=== PATIENT | female | born 1960 | race Caucasian/White ===

== ENCOUNTER 2017-08-14 21:05 | Emergency (ER) | payer OTHER ==
[~2017-08-14] VITALS: Ht 157.5 cm; Wt 83.0 kg
[2017-08-14 21:18] VITALS: BP 145/82
--- NOTE | 2017-08-14 22:15 | NUR ---
57 Y/O F W/C/O R KNEE PAIN S/P FALLING TONIGH AT 1900. PT DENIES HITTING HEAD. MED HX HTN.
--- NOTE | 2017-08-14 22:30 | NUR ---
TOY RAZO AT BEDSIDE EVALUATING PT.
[2017-08-14] MEDS ORDERED: KETOROLAC 30 MG/ML VIAL IM ONE (22:35)
[2017-08-14] MEDS ORDERED: HYDROcodone/APAP 5/325 MG 1 TAB TAB PO ONE (22:35)
[2017-08-14 23:00] VITALS: BP 140/87
--- NOTE | 2017-08-14 23:00 | NUR ---
Patient discharged with v/s stable. Written and verbal after care instructions given and explained. Patient alert, oriented and verbalized understanding of instructions. Ambulatory ON CRUTCHES with steady gait. All questions addressed prior to discharge. ID band removed. Patient advised to follow up with PMD OR RETRUN BACK TO ER IF CONDITION WORSENS. Rx of NORCO, AND NAPROSYN given. Patient educated on indication of medication including possible reaction and side effects. Opportunity to ask questions provided and answered.
== END 2017-08-14 23:00 | disposition home or self-care (01) ==
LOC: MED 21:05
DX: S83.91XA Sprain of unspecified site of right knee, initial encounter (principal); I10 Essential (primary) hypertension; W01.0XXA Fall on same level from slipping, tripping and stumbling without subsequent striking against object, initial encounter; Y93.89 Activity, other specified; Y92.89 Other specified places as the place of occurrence of the external cause; Y99.8 Other external cause status
CPT/HCPCS: 29505; 73562; 96372; 99284; J1885

== ENCOUNTER 2017-08-30 20:42 | Emergency (ER) | payer OTHER ==
[~2017-08-30] VITALS: Ht 157.5 cm; Wt 86.2 kg
[2017-08-30 20:59] VITALS: BP 142/74
--- NOTE | 2017-08-30 21:05 | NUR ---
TO LOBBY AMB, V/S STABLE A/W FOR BED, ERMKeven NOTED
--- NOTE | 2017-08-30 23:15 | NUR ---
PT. AMBULATED TO ER BED 11
--- NOTE | 2017-08-30 23:30 | NUR ---
57Y/F PT.PRESENTS TO ED WITH C/O R. KNEE PAIN. PT. FELL ON 08/14/17, WAS SEEN BY ER MD AND F/U WITH PMD. TODAY PAIN GET WORSE AND RT. LEG BRUISES. HX. HTN. PT DENIES N/V/D; SKIN IS INTACT, PINK/WARM/DRY, RT. KNEE BRUISE ON KNEE IMMOBILIZER; AAOX4, PERRL, WITH UNSTEADY GAIT; LUNGS CLEAR BL, BREATHING UNLABORED; HR EVEN AND REGULAR, BL PERIPHERAL PULSES PRESENT; BS ACTIVE X4, NO TENDERNESS TO PALPATION, NO HEPATOSPLENOMEGALLY PALPATED, RESONANT TO PERCUSSION; PT DENIES ANY FEVER, CP, SOB, OR COUGH AT THIS TIME; PT STATES 5/10 PAIN AT THIS TIME; VSS; PATIENT POSITIONED FOR COMFORT; HOB ELEVATED; BEDRAILS UP X2; BED DOWN.
--- NOTE | 2017-08-31 00:42 | NUR ---
Patient being evaluated by at bedside.
--- NOTE | 2017-08-31 00:55 | NUR ---
Patient discharged with v/s stable. Written and verbal after care instructions given and explained. Patient alert, oriented and verbalized understanding of instructions. Ambulatory with steady gait. All questions addressed prior to discharge. ID band removed. Patient advised to follow up with PMD. Rx of NORCO 5/325MG/KEFLEX 500 MG given. Patient educated on indication of medication including possible reaction and side effects. Opportunity to ask questions provided and answered.
[2017-08-31 00:57] VITALS: BP 132/84
== END 2017-08-31 00:55 | disposition home or self-care (01) ==
LOC: MED 20:42
DX: L03.115 Cellulitis of right lower limb (principal); I10 Essential (primary) hypertension
CPT/HCPCS: 73562; 99284

== ENCOUNTER 2020-11-19 16:12 | Emergency (ER) | payer MEDICAID, OTHER ==
[~2020-11-19] VITALS: Ht 165.1 cm; Wt 87.1 kg
[2020-11-19 16:40] VITALS: BP 175/101
[2020-11-19] MEDS ORDERED: predniSONE 20 MG TAB PO ONE (17:05)
[2020-11-19] MEDS ORDERED: PRED10TA5 PO (17:20)
[2020-11-19] MEDS ORDERED: DIPH25TA53 PO (17:21)
[2020-11-19 17:31] VITALS: BP 162/99
== END 2020-11-19 17:30 | disposition home or self-care (01) ==
LOC: MED 16:12
DX: L23.9 Allergic contact dermatitis, unspecified cause (principal); I10 Essential (primary) hypertension
CPT/HCPCS: 99283; J7512

== ENCOUNTER 2020-12-11 15:32 | Emergency (ER) | payer MEDICAID ==
[~2020-12-11] VITALS: Ht 170.2 cm; Wt 80.3 kg
[~2020-12-11 15:32] MED LIST: DIPH25TA53 PO; PRED10TA5 PO
[2020-12-11 15:36] VITALS: BP 147/93
--- NOTE | 2020-12-11 15:52 | NUR ---
WITH C/O LEFT KNEE SWELLING X2 WEEKS, REDNESS AND SWELLING NOTED. PATIENT ALSO HAS ECZEMA (BELIEVES ITS A RESULT FROM COVID), AND STATES SHE FEELS IT IS GETTING WORSE PMH: HTN
--- NOTE | 2020-12-11 16:18 | NUR ---
Dr. Granda is evaluating the patient at bedside.
[2020-12-11] MEDS ORDERED: AMOX-1000 PO (16:30)
[2020-12-11] MEDS ORDERED: HYDR-637 PO (16:30)
[2020-12-11] MEDS ORDERED: DIPH1CRE19 TP (16:30)
--- NOTE | 2020-12-11 16:35 | NUR ---
DISCHARGE INSTRUCTIONS GIVEN. STABLE UPON DISCHARGE
[2020-12-11 16:46] VITALS: BP 133/68
== END 2020-12-11 16:35 | disposition home or self-care (01) ==
LOC: MED 15:32
DX: T88.1XXA Other complications following immunization, not elsewhere classified, initial encounter (principal); L27.0 Generalized skin eruption due to drugs and medicaments taken internally; I10 Essential (primary) hypertension; M71.162 Other infective bursitis, left knee; T50.B95A Adverse effect of other viral vaccines, initial encounter; Y92.89 Other specified places as the place of occurrence of the external cause; L50.9 Urticaria, unspecified; Z79.899 Other long term (current) drug therapy
CPT/HCPCS: 99283

== ENCOUNTER 2021-02-17 17:42 | Emergency (ER) | payer MEDICAID ==
[~2021-02-17] VITALS: Ht 157.5 cm; Wt 86.2 kg
[~2021-02-17 17:42] MED LIST changes: +AMOX-1000 PO; +DIPH1CRE19 TP; +HYDR-637 PO
[2021-02-17 17:53] VITALS: BP 181/96
--- NOTE | 2021-02-17 18:04 | NUR ---
PATIENT AMBULATED TO ER BED 09
--- NOTE | 2021-02-17 18:10 | NUR ---
60 Y/O FEMALE C/O LAC WOUND TO LEFT INNER ARM (AC AREA) S/P FALL X LAST NIGHT. CONTROLLED BLEEDING. PT STATES THAT SHE TRIPPED OVER HER DOG AND HIT HER ARM TRYING TO CATCH HERSELF ON A METAL BOOKSHELF. UNWARE AT LAST TDAP. PT HAS FULL SENSATION BUT STATES THAT IT IS NUMB. RADIAL PULSES +2, CAP REFILL <3 SECONDS. PT A/O X4 WITH EVEN AND UNLABORED RESPIRATIONS. PMH: HTN NKDA
--- NOTE | 2021-02-17 18:22 | NUR ---
OUSMANE TINOCO AT BEDSIDE EXAMINING PATIENT
[2021-02-17] MEDS ORDERED: BACITRACIN OINT 500 UNITS/GM PKT TP ONE (18:30)
[2021-02-17] MEDS ORDERED: ACETAMINOPHEN EXTRA STRENGTH 500 MG TAB PO ONE (18:30)
[2021-02-17] MEDS ORDERED: BACI1PAC6 TP (18:46)
[2021-02-17] MEDS ORDERED: IBUP-2213 PO (18:46)
[2021-02-17 19:10] VITALS: BP 181/96
--- NOTE | 2021-02-17 19:12 | NUR ---
Patient discharged with v/s stable. Written and verbal after care instructions ABOUT MEDICATIONS AND LACERATION CARE given and explained. Patient alert, oriented and verbalized understanding of instructions. Ambulatory with steady gait. All questions addressed prior to discharge. ID band removed. Patient advised to follow up with PMD. Rx of BACITRACIN ZINC OINT AND IBUPROFEN given. Patient educated on indication of medication including possible reaction and side effects. Opportunity to ask questions provided and answered.
== END 2021-02-17 19:12 | disposition home or self-care (01) ==
LOC: MED 17:42
DX: S51.812A Laceration without foreign body of left forearm, initial encounter (principal); I10 Essential (primary) hypertension; Z79.899 Other long term (current) drug therapy; W23.0XXA Caught, crushed, jammed, or pinched between moving objects, initial encounter; Y93.89 Activity, other specified; Y92.89 Other specified places as the place of occurrence of the external cause; Y99.8 Other external cause status
CPT/HCPCS: 90471; 90715; 99283

== ENCOUNTER 2021-02-19 11:53 | Emergency (ER) | payer MEDICAID ==
[~2021-02-19] VITALS: Ht 157.5 cm; Wt 91.6 kg
[~2021-02-19 11:53] MED LIST changes: +BACI1PAC6 TP; +IBUP-2213 PO
[2021-02-19 11:55] VITALS: BP 174/92
[2021-02-19] MEDS ORDERED: KEN.1O80 TP (12:12)
[2021-02-19] MEDS ORDERED: CETI5TAB PO (12:12)
[2021-02-19 12:19] VITALS: BP 174/92
== END 2021-02-19 12:19 | disposition home or self-care (01) ==
LOC: MED 11:53
DX: S51.812D Laceration without foreign body of left forearm, subsequent encounter (principal); L30.9 Dermatitis, unspecified; I10 Essential (primary) hypertension; X58.XXXD Exposure to other specified factors, subsequent encounter; Z79.899 Other long term (current) drug therapy
CPT/HCPCS: 99283

== ENCOUNTER 2021-05-06 08:46 | Emergency (ER) | payer MEDICAID, OTHER ==
[~2021-05-06] VITALS: Ht 157.5 cm; Wt 90.7 kg
[~2021-05-06 08:46] MED LIST changes: +CETI5TAB PO; +KEN.1O80 TP
[2021-05-06 08:47] VITALS: BP 158/85
[2021-05-06] MEDS ORDERED: NAPR-1704 PO (09:27)
--- NOTE | 2021-05-06 09:38 | NUR ---
patient was given a thumb spica splint for her left hand. patient refused sling. ERMD notified.
--- NOTE | 2021-05-06 09:43 | NUR ---
Patient discharged with v/s stable. Written and verbal after care instructions ABOUT DE QUERVAINS TENOSYNOVITIS given and explained. Patient alert, oriented and verbalized understanding of instructions. Ambulatory with steady gait. All questions addressed prior to discharge. ID band removed. Patient advised to follow up with PMD. Rx of NAPROXEN given. Patient educated on indication of medication including possible reaction and side effects. Opportunity to ask questions provided and answered.
== END 2021-05-06 09:43 | disposition home or self-care (01) ==
LOC: MED 08:46
DX: M65.4 Radial styloid tenosynovitis [de Quervain] (principal); I10 Essential (primary) hypertension; Z79.899 Other long term (current) drug therapy
CPT/HCPCS: 73110; 99283

== ENCOUNTER 2022-09-02 17:22 | Emergency (ER) | payer OTHER ==
[~2022-09-02] VITALS: Ht 157.5 cm; Wt 86.2 kg
[~2022-09-02 17:22] MED LIST changes: +BACI-416 TP; -BACI1PAC6 TP; -CETI5TAB PO; +CETI5TAB24 PO; +NAPR-1704 PO
[2022-09-02 17:30] VITALS: BP 203/88
--- NOTE | 2022-09-02 19:50 | NUR ---
Patient lying in bed, A/Ox4, chest rise and fall symmetrical, no s/s of distress, patient on monitor.
[2022-09-02 20:42] LABS: BASOPHILS % (AUTO) 0.5 % (0.0-2.0); EOSINOPHILS # (AUTO) 0.2 K/uL (0-0.4); EOSINOPHILS % (AUTO) 2.3 % (0.0-4.0); HEMATOCRIT 40.5 % (36-48); HEMOGLOBIN 13.6 g/dL (12.0-16.0); LYMPHOCYTES # (AUTO) 2.9 K/uL (2.5-16.5); LYMPHOCYTES % (AUTO) 32.1 % (20.5-51.1); MEAN CORPUSCULAR HEMOGLOBIN 30 pg (27-31); MEAN CORPUSCULAR HGB CONC 34 g/dL (33-37); MEAN CORPUSCULAR VOLUME 88.2 fL (80-94); MONOCYTES # (AUTO) 0.5 K/uL (0.8-1.0); MONOCYTES % (AUTO) 5.8 % (1.7-9.3); NEUTROPHILS # (AUTO) 5.4 K/uL (1.8-7.7); NEUTROPHILS % (AUTO) 59.3 % (42.2-75.2); PLATELET COUNT (AUTO) 283 K/uL (140-450); RED CELL DISTRIBUTION WIDTH 13.2 % (11.6-13.7)
[2022-09-02 21:13] LABS: ALBUMIN 4.1 g/dL (3.4-5.0); ANION GAP 12.5 (8-16); CARBON DIOXIDE 30.5 mmol/L (21-32); CREATININE 0.8 mg/dL (0.6-1.3); TOTAL BILIRUBIN 0.2 mg/dL (0.0-1.0)
--- NOTE | 2022-09-02 21:22 | NUR ---
Patient lying in bed, A/Ox4, chest rise and fall symmetrical, no s/s of distress. Addendum: 09/02/22 at 2144 by [email or web address] Patient lying in bed, A/Ox4, chest rise and fall symmetrical, no s/s of distress, patient on monitor.
[2022-09-02] MEDS ORDERED: LID5T TP (21:52)
[2022-09-02] MEDS ORDERED: IBUP-1842 PO (21:52)
[2022-09-02 22:25] VITALS: BP 131/72
== END 2022-09-02 22:25 | disposition home or self-care (01) ==
LOC: MED 17:22
DX: R07.89 Other chest pain (principal); I10 Essential (primary) hypertension; Z79.899 Other long term (current) drug therapy
CPT/HCPCS: 36415; 71045; 80053; 83880; 84484; 85025; 93005; 99285; Q0092